=== PATIENT | female | born 1955 | race Caucasian/White ===

== ENCOUNTER 2019-04-30 14:03 | Emergency (ER) | payer OTHER ==
[2019-04-30] MEDS ORDERED: NA CHLORIDE 0.9% 1,000 ML ONE (15:05)
[2019-04-30 15:19] LABS: Absolute Lymphocytes (CBC) 0.8 K/uL (0.7-4.9); Basophils % 0.3 % (0-1.3); Lymphocytes % 21.3 % (15.3-44.8); MPV 11.1 fL (7.6-11.3)
[2019-04-30] MEDS ORDERED: MEPERIDINE HCL 25 MG/0.5 ML ONE (15:32)
[2019-04-30 15:39] LABS: ALT/SGPT 26 U/L (12-78); AST/SGOT 24 U/L (15-37); Albumin 3.8 g/dL (3.4-5.0); Alkaline Phosphatase 69 U/L (45-117); BUN Blood Urea Nitrogen 13 mg/dL (7-18); Bicarbonate 26 mmol/L (21-32); Bilirubin Direct 0.3 mg/dL (0-0.2); Bilirubin Total 1.3 mg/dL (0.2-1.0); Glucose Level 104 mg/dL (74-106); Lipase 90 U/L (73-393); NT PRO-BNP 44 pg/mL (<125); Potassium 3.4 mmol/L (3.5-5.1); Protein, Total 7.3 g/dL (6.4-8.2); Sodium Level 142 mmol/L (136-145); Troponin (Emerg Dept Use Only) < 0.02 ng/mL (0.0-0.045)
--- NOTE | 2019-04-30 16:32 | ER ---
Nurse's Notes [facility] Name: Le Hale Age: 63 yrs Sex: Female : 1955 Arrival Date: 04/30/2019 Time: 14:05 Bed 17 Private MD: Sin Das H Diagnosis: Chest pain, unspecified Presentation: 04/30 14:12 Presenting complaint: Patient states: intermittent chest pain that began this morning. aa5 Pt denies SOB. 14:12 Transition of care: patient was not received from another setting of care. Onset of aa5 symptoms was April 2019. Risk Assessment: Do you want to hurt yourself or someone else? Patient reports no desire to harm self or others. Initial Sepsis Screen: Does the patient meet any 2 criteria? No. Patient's initial sepsis screen is negative. Does the patient have a suspected source of infection? No. Patient's initial sepsis screen is negative. Care prior to arrival: None. 14:12 Acuity: ANABELLA 3 aa5 14:12 Method Of Arrival: Ambulatory aa5 Triage Assessment: 14:15 General: Appears in no apparent distress. comfortable, Behavior is cooperative, bp appropriate for age, anxious. Pain: Complains of pain in chest. EENT: No deficits noted. Neuro: No deficits noted. Cardiovascular: Rhythm is sinus rhythm. Respiratory: No deficits noted. GI: No signs and/or symptoms were reported involving the gastrointestinal system. : No signs and/or symptoms were reported regarding the genitourinary system. Derm: No deficits noted. Musculoskeletal: No deficits noted. Historical: - Allergies: 14:12 Codeine (Upset stomach); aa5 14:12 Latex, Natural Rubber (Rash); aa5 - PMHx: 14:12 IBS; Hyperlipidemia; aa5 - PSHx: 14:12 Hysterectomy; Cholecystectomy; liposuction; aa5 - Immunization history:: Flu vaccine is not up to date. - Social history:: Smoking status: Patient/guardian denies using tobacco. - Ebola Screening: : No symptoms or risks identified at this time. - Family history:: not pertinent. - Hospitalizations: : No recent hospitalization is reported. Screenin:57 Abuse screen: Denies threats or abuse. Denies injuries from another. Nutritional bp screening: No deficits noted. Tuberculosis screening: No symptoms or risk factors identified. Fall Risk None identified. Assessment: 14:15 General: SEE TRIAGE NOTE. Pain: Pain does not radiate. Pain began 1 day ago. bp 16:36 Reassessment: PT D/C HOME AMBULATORY, DX WITH NONSPECIFIC CHEST PAIN. bp Vital Signs: 14:13 BP 146 / 75; Pulse 76; Resp 16 S; Temp 98.6(O); Pulse Ox 99% on R/A; Weight 77.11 kg aa5 (R); Height 5 ft. 6 in. (167.64 cm) (R); Pain 5/10; 15:04 BP 125 / 58; Pulse 81; Resp 13; Pulse Ox 99% on R/A; mh5 16:36 BP 134 / 87; Pulse 75; Resp 17; Temp 98.6; Pulse Ox 99% ; bp 14:13 Body Mass Index 27.44 (77.11 kg, 167.64 cm) aa5 ED Course: 14:05 Patient arrived in ED. mr 14:05 Sin Das MD is Private Physician. mr 14:12 Darien Gomez, RN is Primary Nurse. bp 14:12 Arm band placed on Patient placed in an exam room, on a stretcher. aa5 14:17 Triage completed. aa5 14:18 Marv Donahue MD is Attending Physician. rn 14:28 EKG done, by structures technician. reviewed by Marv Donahue MD. sm3 14:57 Patient has correct armband on for positive identification. Bed in low position. Call bp light in reach. Side rails up X2. satellite project site monitor on. Pulse ox on. NIBP on. 14:59 XRAY Chest (1 view) In Process Unspecified. EDMS 15:01 Initial lab(s) drawn, by pr, sent to lab. Inserted saline lock: 22 gauge in right [facility] antecubital area, using aseptic technique. Blood collected. 15:02 Lipase Sent. [facility] 15:02 Basic Metabolic Panel Sent. [facility] 15:02 CBC with Diff Sent. [facility] 15:02 LFT's Sent. [facility] 15:02 NT PRO-BNP Sent. [facility] 15:02 Troponin (emerg Dept Use Only) Sent. [facility] 15:04 Warm blanket given. [facility] 16:36 No provider procedures requiring assistance completed. IV discontinued, intact, bp bleeding controlled, No redness/swelling at site. Pressure dressing applied. Patient maintains SpO2 saturation greater than 95% on room air. Administered Medications: 15:00 Drug: NS 0.9% 1000 ml Route: IV; Rate: 1000 ml; Site: right antecubital; bp 16:29 Follow up: IV Status: Completed infusion; IV Intake: 1000ml bp 15:34 Drug: Demerol 25 mg Route: IVP; Site: right antecubital; bp 16:28 Follow up: Response: Pain is decreased bp Intake: 16:29 IV: 1000ml; Total: 1000ml. bp Outcome: 16:31 Discharge ordered by . rn 16:35 Discharged to home ambulatory. bp 16:35 Condition: stable 16:35 Discharge instructions given to patient, Instructed on discharge instructions, follow up and referral plans. Demonstrated understanding of instructions, follow-up care. 16:37 Patient left the ED. bp Signatures: Dispatcher [employer] EDWY Juana Ying Roman, MD MD rn Calderon, Audri, RN RN travis5 Josefa Powell5 Darien Gomez RN RN bp Marry Walker 3
--- NOTE | 2019-04-30 16:33 | EDPHYS ---
Physician Documentation [facility] Name: Le Hale Age: 63 yrs Sex: Female : 1955 Arrival Date: 04/30/2019 Time: 14:05 Bed 17 Private MD: Sin Das H ED Physician Marv Donahue HPI: 04/30 14:56 This 63 yrs old Female presents to ER via Ambulatory with complaints of Chest rn Pain. 14:56 The patient or guardian reports chest pain that is located primarily in the substernal rn area, anterior chest wall, right. Onset: this morning. The pain does not radiate. Associated signs and symptoms: Pertinent positives: None. Pertinent negatives: abdominal pain, cough, diaphoresis, dizziness, palpitations, recent travel, shortness of breath, syncope, vomiting. The chest pain is described as aching. Duration: The patient or guardian reports multiple episodes, that are intermittent. Modifying factors: The symptoms are alleviated by nothing. the symptoms are aggravated by nothing. Severity of pain: At its worst the pain was moderate in the emergency department the pain has improved. The patient has not recently seen a physician. Reports substernal and right inferior chest pain, began this morning, had diarrhea and nausea yesterday, got better, took pepto bismol and this pain started. Had similar reaction to immodium in past, has IBS. Denies trauma/cough/sob/fever. Denies abd pain. Admitted for chest pain 4 years ago and diagnosed with gastric spasm. . Historical: - Allergies: 14:12 Codeine (Upset stomach); aa5 14:12 Latex, Natural Rubber (Rash); aa5 - PMHx: 14:12 IBS; Hyperlipidemia; aa5 - PSHx: 14:12 Hysterectomy; Cholecystectomy; liposuction; aa5 - Immunization history:: Flu vaccine is not up to date. - Social history:: Smoking status: Patient/guardian denies using tobacco. - Ebola Screening: : No symptoms or risks identified at this time. - Family history:: not pertinent. - Hospitalizations: : No recent hospitalization is reported. ROS: 14:56 Constitutional: Negative for fever, chills, and weight loss, Eyes: Negative for injury, rn pain, redness, and discharge, Neck: Negative for injury, pain, and swelling, Cardiovascular: Negative for palpitations, and edema, Respiratory: Negative for shortness of breath, cough, wheezing, and pleuritic chest pain, Abdomen/GI: Negative for abdominal pain, vomiting,and constipation, Back: Negative for injury and pain, : Negative for injury, bleeding, discharge, and swelling, MS/Extremity: Negative for injury and deformity, Skin: Negative for injury, rash, and discoloration, Neuro: Negative for headache, weakness, numbness, tingling, and seizure. Exam: 14:56 Constitutional: This is a well developed, well nourished patient who is awake, alert, rn and in no acute distress. Head/Face: Normocephalic, atraumatic. Eyes: Pupils equal round and reactive to light, extra-ocular motions intact. Lids and lashes normal. Conjunctiva and sclera are non-icteric and not injected. Cornea within normal limits. Periorbital areas with no swelling, redness, or edema. ENT: MMM Cardiovascular: Regular rate and rhythm. No pulse deficits. Respiratory: Lungs have equal breath sounds bilaterally, clear to auscultation. No increased work of breathing, no retractions or nasal flaring. Abdomen/GI: soft, non-tender, non-distended, no masses MS/ Extremity: Pulses equal, no cyanosis. Neurovascular intact. Full, normal range of motion. Equal circumference. Neuro: Awake and alert, GCS 15 Vital Signs: 14:13 BP 146 / 75; Pulse 76; Resp 16 S; Temp 98.6(O); Pulse Ox 99% on R/A; Weight 77.11 kg aa5 (R); Height 5 ft. 6 in. (167.64 cm) (R); Pain 5/10; 15:04 BP 125 / 58; Pulse 81; Resp 13; Pulse Ox 99% on R/A; mh5 16:36 BP 134 / 87; Pulse 75; Resp 17; Temp 98.6; Pulse Ox 99% ; bp 14:13 Body Mass Index 27.44 (77.11 kg, 167.64 cm) aa5 MDM: 14:18 Patient medically screened. rn 16:29 Differential diagnosis: acute myocardial infarction, acute pericarditis, coronary rn artery disease chest wall pain, costochondritis, esophagitis, gastritis, gastroesophageal reflux disease (GERD), pancreatitis, peptic ulcer disease, pericarditis, pleurisy, pneumothorax. Data reviewed: vital signs, nurses notes, lab test result(s), EKG, radiologic studies, plain films, and as a result, I will discharge patient. Test interpretation: by ED physician or midlevel provider: ECG, plain radiologic studies, CXR negative for acute infiltrate. Counseling: I had a detailed discussion with the patient and/or guardian regarding: the historical points, exam findings, and any diagnostic results supporting the discharge/admit diagnosis, lab results, radiology results, the need for outpatient follow up, to return to the emergency department if symptoms worsen or persist or if there are any questions or concerns that arise at home. Response to treatment: the patient's symptoms have resolved after treatment, the patient's condition has returned to base line, the patient is now symptom free, and as a result, I will discharge patient. Special discussion: Based on the patient's history, exam, and Dx evaluation, there is no indication for emergent intervention or inpatient Tx. It is understood by the patient/guardian that if the Sx's persist or worsen they need to return immediately for re-evaluation. I discussed with the patient/guardian in detail that at this point there is no indication for admission to the hospital. It is understood, however, that if the symptoms persist or worsen the patient needs to return immediately for re-evaluation. ED course: Pain resolved, began this morning and trop and ecg normal. CXR neg. Will dc home with return precautions and told to f/u with cardiology if continues. Patient attributes pain to pepto bismol since she had similar reaction to immodium.. 04/30 14:29 Order name: Basic Metabolic Panel; Complete Time: 16:23 04/30 14:29 Order name: CBC with Diff 04/30 14:29 Order name: LFT's; Complete Time: 16:04/30 14:29 Order name: NT PRO-BNP; Complete Time: 16:04/30 14:29 Order name: Troponin (emerg Dept Use Only); Complete Time: 16:23 04/30 14:29 Order name: Lipase; Complete Time: 16:23 04/30 14:29 Order name: XRAY Chest (1 view) 04/30 14:29 Order name: EKG; Complete Time: 14:30 04/30 14:29 Order name: Cardiac monitoring; Complete Time: 14:55 rn 04/30 14:29 Order name: EKG - Nurse/Tech; Complete Time: 14:55 rn 04/30 14:29 Order name: IV Saline Lock; Complete Time: 15:02 rn 04/30 14:29 Order name: Labs collected and sent; Complete Time: 15:02 rn 04/30 14:29 Order name: O2 Per Protocol; Complete Time: 14:55 rn 04/30 14:29 Order name: O2 Sat Monitoring; Complete Time: 14:55 rn Administered Medications: 15:00 Drug: NS 0.9% 1000 ml Route: IV; Rate: 1000 ml; Site: right antecubital; bp 16:29 Follow up: IV Status: Completed infusion; IV Intake: 1000ml bp 15:34 Drug: Demerol 25 mg Route: IVP; Site: right antecubital; bp 16:28 Follow up: Response: Pain is decreased bp Disposition: 04/30/19 16:31 Discharged to Home. Impression: Chest pain, unspecified. - Condition is Stable. - Discharge Instructions: Nonspecific Chest Pain. - Medication Reconciliation Form, Thank You Letter, Antibiotic Education, Prescription Opioid Use form. - Follow up: Private Physician; When: As needed; Reason: Recheck today's complaints, Re-evaluation by your physician. - Problem is new. - Symptoms have improved. Signatures: Dispatcher [employer] EDMS Marv Donahue MD MD rn Calderon, Audri, RN RN aa5 Darien Gomez RN RN bp Corrections: (The following items were deleted from the chart) 16:37 16:31 04/30/2019 16:31 Discharged to Home. Impression: Chest pain, unspecified. bp Condition is Stable. Forms are Medication Reconciliation Form, Thank You Letter, Antibiotic Education, Prescription Opioid Use. Follow up: Private Physician; When: As needed; Reason: Recheck today's complaints, Re-evaluation by your physician. Problem is new. Symptoms have improved. rn
--- NOTE | 2019-04-30 16:56 | EKG ---
Test Date: 2019-04-30 Test Time: 14:19:32 [employer] Whacker: PATO MEASUREMENT RESULTS: Intervals: Rate: 71 KS: 178 QRSD: 80 QT: 382 QTc: 415 Jelm: P: 44 KS: 178 QRS: 45 T: 21 INTERPRETIVE STATEMENTS: Normal sinus rhythm Normal ECG Compared to ECG 08/17/2015 05:47:41 Sinus bradycardia no longer present Electronically Signed On 04-30-19 16:55:08 CDT by Sha Gotti
--- NOTE | 2019-04-30 17:06 | RAD REPORT ---
EXAM DESCRIPTION: RAD - Chest Single View - 04/30/2019 2:57 pm CLINICAL HISTORY: Chest pain COMPARISON: December 2016 TECHNIQUE: AP portable chest image was obtained 1451 hour . FINDINGS: Lung volumes are low accentuating the baseline interstitial pattern. No peripheral mass or consolidation. No significant failure or volume overload. Heart and vasculature are normal. No measu rable pleural effusion and no pneumothorax. No acute bony abnormality seen. No acute aortic findings suspected. IMPRESSION: No acute cardiopulmonary process. Shallow inspiration masks the baseline interstitial pattern potentially masking early interstitial ed katina or infiltrate.
[2019-04-30 18:02] LABS: Blood Morphology Comment NOT SEEN (NOT SEEN); Platelet Estimate ADEQ; Platelets, Giant FEW; Urine White Blood Cell Casts OK
[2019-04-30 18:59] VITALS: TEMP 98.6; O2SAT 99
[2019-04-30 19:01] VITALS: BP 134/87
== END 2019-04-30 16:37 | disposition home or self-care (01) ==
LOC: ER 14:03
DX: R07.9 Chest pain, unspecified (principal); E78.5 Hyperlipidemia, unspecified; K58.9 Irritable bowel syndrome, unspecified; Z88.5 Allergy status to narcotic agent; Z91.040 Latex allergy status; Z91.048 Other nonmedicinal substance allergy status
CPT/HCPCS: 96361; 93005; 85025; 80048; 36415; 80076; 84484; 83690; 83880; 71045; 96374; 99285; J2175; J7030